=== PATIENT | male | born 1985 | race Caucasian/White ===

== ENCOUNTER 2020-09-27 22:03 | Emergency (ER) | payer MEDICAID ==
[~2020-09-27] VITALS: Ht 188 cm; Wt 89.9 kg
--- NOTE | 2020-09-27 23:26 | NUR ---
PATIENT RESTING QUIETLY ON STRETCHER WITH EYES CLOSED, WAKES, MUMBLES AND FALLS QUICKLY BACK TO SLEEP. NAD, VSS, CALL MAX WITHIN REACH, WILL CONTINUE TO MONITOR.
[2020-09-27 23:30] VITALS: BP 128/66
== END 2020-09-27 23:57 | disposition home or self-care (01) ==
LOC: ED 22:33
DX: U07.1 COVID-19 (principal); B34.9 Viral infection, unspecified; R00.0 Tachycardia, unspecified; I25.2 Old myocardial infarction
CPT/HCPCS: 71045; 87635; 93005; 99285

== ENCOUNTER 2021-01-11 08:42 | Emergency (ER) | payer MEDICAID ==
[~2021-01-11] VITALS: Ht 188 cm; Wt 90.2 kg
[2021-01-11] MEDS ORDERED: BUPIVACAINE 0.25% ONE (09:21)
[2021-01-11] MEDS ORDERED: LIDOCAINE-MPF 1%, 5ML ONE (09:21)
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
[2021-01-11] MEDS ORDERED: BUPIVACAINE/PF-EPI 0.25% 1:200K SQ ONE (09:30)
[2021-01-11] MEDS ORDERED: LIDOCAINE-MPF 1%, 5ML INFIL ONE (09:30)
[2021-01-11] MEDS ORDERED: SODIUM CHLORIDE FLUSH 10ML SYR IVF ONE (10:00)
[2021-01-11] MEDS ORDERED: MORPHINE SULFATE 4 MG/ML, 1ML IVPush PRN (10:00)
[2021-01-11] MEDS ORDERED: ONDANSETRON 2MG/ML, 2ML IVPush ONE (10:00)
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
--- NOTE | 2021-01-11 10:24 | NUR ---
ARMANDO REMOVED FROM WOUND BY PT. PT UNABLE TO STRAIGHTEN FINGERS AT THIS TIME. XRAY IN ROOM. [facility] HERE.
[2021-01-11] MEDS ORDERED: CEFAZOLIN PMX 1GM/50ML 50 ML IV ONE (11:00)
[2021-01-11] MEDS ORDERED: CEFAZOLIN 1,000 MG ONE (11:14)
[2021-01-11 11:26] VITALS: BP 114/71
--- NOTE | 2021-01-11 11:26 | NUR ---
IV CHANGED TO IM ANCEF, GIVEN PER ERP ORDER. VSS/UPDATED IN COMPUTER. AWAITING COMPLICATED REPAIR.
[2021-01-11] MEDS ORDERED: KETAMINE 100 MG/ML, 5ML IV ONE (12:30)
[2021-01-11] MEDS ORDERED: KETAMINE 10 MG/ML, 20ML ONE (12:54)
[2021-01-11] MEDS ORDERED: NEOSPORIN OINT. PKT 1 PACKET ONE (14:05)
--- NOTE | 2021-01-11 14:28 | NUR ---
PT UNCOOPERATIVE WITH CARE DURING MOST OF ED STAY. DUE TO INABILITY TO KEEP HAND STILL FOR SUTURING, PLAN FOR IV PROCEDURAL SEDATION. MULTIPLE ATTEMPTS FOR IV UNSUCCESSFUL. ATTEMPT WITH US GUIDED BY ALEJANDRO HAQ, UNSUCCESSFUL. PT ABLE TO BE NUMBED MORE EFFECTIVELY AND PA PLACED SUTURES. ED MEDIC IN TO DRESS WOUND AND SPLINT. PT WALKED OUT OF ER BEFORE TREATMENT COMPLETE OR DISCHARGE INSTRUCTS PROVIDED.
== END 2021-01-11 14:35 | disposition left against medical advice (07) ==
LOC: ED 10:05
DX: S61.411A Laceration without foreign body of right hand, initial encounter (principal); S61.212A Laceration without foreign body of right middle finger without damage to nail, initial encounter; Y08.89XA Assault by other specified means, initial encounter; Y93.89 Activity, other specified; Y92.89 Other specified places as the place of occurrence of the external cause; Y99.8 Other external cause status
CPT/HCPCS: 12042; 73130; 96365; 96372; 99284; J0690